=== PATIENT | female | born 1975 | race Caucasian/White ===

== ENCOUNTER 2018-11-29 10:42 | Emergency (ER) | payer OTHER ==
[~2018-11-29] VITALS: Ht 154.9 cm; Wt 80.4 kg
[~2018-11-29 10:42] MED LIST: CIPR500T4 PO; IBUP-1542 PO; METH750T93 PO; TYL500 PO
[2018-11-29 10:46] VITALS: Ht 154.9 cm; Wt 80.4 kg
[2018-11-29] MEDS ORDERED: KETOROLAC 30 MG INJ IM STA (11:09)
[2018-11-29] MEDS ORDERED: NITR-58 PO (11:43)
[2018-11-29] MEDS ORDERED: PHEN-538 PO (11:43)
--- NOTE | 2018-11-29 11:47 | ERD ---
ER Documentation Chief Complaint Chief Complaint LOW BACK PAIN RADIATING TO LEG, ONSET 1 WEEK, NO INJURY, ALSO DYSURIA HPI 43-year-old female presents with 4 days of dysuria and increased urinary frequency with lower back pain that radiates to the front. No hematuria. No fever. No nausea or vomiting. Denies possibility of . No trauma. Denies leg pain. ROS All systems reviewed and are negative except as per history of present illness. Medications Home Meds Active Scripts Phenazopyridine Hcl* (Pyridium*) 200 Mg Tab, 200 MG PO TID PRN for URINARY PAIN, #6 TAB Prov:JOHN FLORES PA-C 11/29/18 Nitrofurantoin Monohyd Macrocr* (Macrobid*) 100 Mg Capsr, 100 MG PO BID for 7 Days, CAP Prov:JOHN FLORES PA-C 11/29/18 Methocarbamol* (Robaxin*) 750 Mg Tablet, 750 MG PO TID PRN for MUSCLE SPASMS, #30 TAB Prov:KINGSLEY ARROYO DO 07/08/18 Acetaminophen* (Tylenol*) 500 Mg Tab, 500 MG PO Q4H PRN for MILD PAIN LEVEL 1-3, #30 TAB Prov:KINGSLEY ARROYO DO 07/08/18 Ibuprofen* (Motrin*) 600 Mg Tab, 600 MG PO Q6H PRN for PAIN AND OR ELEVATED TEMP, #30 TAB Prov:KINGSLEY ARROYO DO 07/08/18 Ciprofloxacin Hcl* (Ciprofloxacin Hcl*) 500 Mg Tablet, 500 MG PO BID for uti for 5 Days, #10 TAB Prov:KINGSLEY ARROYO DO 07/08/18 Allergies Allergies: Coded Allergies: No Known Allergy (Unverified , 07/08/18) PMhx/Soc History of Surgery: Yes (Aaliyah) Anesthesia Reaction: No Hx Alcohol Use: No Hx Substance Use: No Hx Tobacco Use: No Smoking Status: Never smoker FmHx Family History: No diabetes Physical Exam Vitals Vital Signs Date Temp Pulse Resp B/P (MAP) Pulse Ox O2 O2 Flow FiO2 Time Delivery Rate 11/29/18 98.4 85 16 149/83 98 10:46 (105) Physical Exam INITIAL VITAL SIGNS: Reviewed by me GENERAL: Awake, alert and oriented x 4, well appearing, nontoxic, speaking in full sentences. No acute distress HEAD: Atraumatic RESPIRATORY: Clear to auscultation bilaterally. Symmetric chest wall rise. No wheezing or rales. No accessory muscle use. CV: Regular rate and rhythm. No murmurs, rubs, or gallops. ABDOMEN: Soft, non-distended. Nontender. Negative [place]. Negative McBurneys point tenderness. No CVA tenderness bilaterally. No guarding. No rebound. BACK: No midline tenderness to palpation. No step-offs. Results 24 hrs Laboratory Tests Test 11/29/18 11:21 11/29/18 11:22 POC Beta HCG, Qualitative NEGATIVE Bedside Urine pH (LAB) 5.5 Bedside Urine Protein (LAB) Trace Bedside Urine Glucose (UA) Negative Bedside Urine Ketones (LAB) Negative Bedside Urine Blood 1+ Bedside Urine Nitrite (LAB) Negative Bedside Urine Leukocyte Esterase (L 3+ Current Medications Medications Dose Sig/Silke Start Time Status Last (Trade) Ordered Route PRN Stop Time Admin Dose Reason Admin Ketorolac 30 mg ONCE STAT 11/29/18 DC 11/29/18 Tromethamine IM 11:09 11/29/18 11:26 (Toradol) 11:11 Procedures/MDM Patient presents with low back pain and dysuria and frequency. No hematuria. No fever. No nausea or vomiting. Low suspicion for pyelonephritis. Urinary tract infection seen on urine dip in her urine was sent for culture. Discharged with Pyridium and Macrobid. Patient counseled regarding my diagnostic impression and care plan. Prior to discharge all questions answered. Pt agrees w ith treatment plan and understands strict return precautions. Pt is instructed to follow up with primary care provider within 24-48 hours. Precautionary instructions provided including instructions to return to the ER if not improving or for any worsening or changing symptoms or concerns. Departure Diagnosis: Primary Impression: Urinary tract infection Condition: Stable Patient Instructions: Understanding Urinary Tract Infections (UTIs) Additional Instructions: Llame al doctor MAANA y yahir arturo BELEN PARA DENTRO DE 1-2 BAE.Dgale a la secretaria que nosotros le instruimos hacer esta belen.Avise o llame si kauffman condicin se empeora antes de la belen. Regresa aqui si peor o no mejor. JOHN FLORES PA-C Nov 29, 2018 11:47
[2018-11-29 12:18] VITALS: BP 132/75; PULSE 71; RESP 16
== END 2018-11-29 12:07 | disposition home or self-care (01) ==
LOC: FTE 10:42
DX: N39.0 Urinary tract infection, site not specified (principal)
CPT/HCPCS: 81003; 81025; 87086; J1885; 90471